=== PATIENT | female | born 2000 | race African-American/Black ===

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

== ENCOUNTER 2021-01-02 10:40 | Emergency (ER) | payer MEDICAID ==
[~2021-01-02] VITALS: Ht 157.5 cm; Wt 69.6 kg
[2021-01-02 11:13] LABS: Urine Bacteria FEW /hpf (None Seen); Urine Blood Negative /uL (Negative); Urine Hyaline Cast FEW /lpf (0 - 2); Urine Mucus FEW (None Seen); Urine Specific Gravity 1.038 (1.001-1.035); Urine WBC 40 /hpf (0 - 5)
[2021-01-02 11:39] LABS: Basophils # (auto) 0.1 10 ^3/uL (0-0.2); Basophils % (auto) 1.3 % (0.0-2.0); Eosinophils # (auto) 0 10 ^3/uL (0-0.8); Eosinophils % (auto) 0.6 % (0.0-7.0); Hemoglobin 13.5 g/dL (12.2-16.2); Lymphocytes # (auto) 1.5 10 ^3/uL (0.4-5.4); Lymphocytes % (auto) 28.5 % (10.0-50.0); Mean Corpuscular Hemoglobin 28.5 pg (28.0-32.0); Mean Corpuscular Hgb Conc. 32.9 g/dL (32.0-36.0); Mean Corpuscular Volume 86.6 fL (80.0-100.0); Monocytes # (auto) 0.2 10 ^3/uL (0-1.3); Monocytes % (auto) 2.9 % (0.0-12.0); Neutrophils # (auto) 3.5 10 ^3/uL (1.6-8.6); Neutrophils % (auto) 66.7 % (37.0-80.0); Red Blood Cells 4.74 10^6/uL (4.0-5.20); White Blood Cell 5.3 10^3/uL (4.4-10.8)
[2021-01-02 11:52] LABS: Albumin 3.6 g/dL (3.4-5.0); Calcium 8.8 mg/dL (8.5-10.1); Potassium 3.4 mmol/L (3.5-5.1)
[2021-01-02 11:55] LABS: BUN/Creatinine Ratio 19.6; Bilirubin, Total 0.3 mg/dL (0.2-1.0); Total Protein 8.7 g/dL (6.4-8.2)
[2021-01-02 12:01] LABS: Cannabinoid Screen, Urine POSITIVE (NEGATIVE)
[2021-01-02 12:08] LABS: Amphetamine Screen, Urine NEGATIVE (NEGATIVE); Barbiturate Scree,Urine NEGATIVE (NEGATIVE); Benzodiazephine Screen, Urine NEGATIVE (NEGATIVE); Cocaine Screen, Urine NEGATIVE (NEGATIVE); Opiate Scree,Urine NEGATIVE (NEGATIVE); Phencyclidine Screen, Urine NEGATIVE (NEGATIVE)
[2021-01-02 13:48] VITALS: BP 122/65
== END 2021-01-02 13:51 | disposition home or self-care (01) ==
LOC: ER 10:40
DX: N39.0 Urinary tract infection, site not specified (principal); Z79.899 Other long term (current) drug therapy
CPT/HCPCS: 36415; 80053; 80307; 81001; 84702; 85025

== ENCOUNTER 2021-01-19 15:34 | Emergency (ER) | payer MEDICAID ==
[~2021-01-19] VITALS: Ht 157.5 cm; Wt 52.2 kg
[2021-01-19 15:41] VITALS: BP 120/75
== END 2021-01-19 18:03 | disposition home or self-care (01) ==
LOC: ER 15:34
DX: S63.636A Sprain of interphalangeal joint of right little finger, initial encounter (principal); W22.8XXA Striking against or struck by other objects, initial encounter; Y93.89 Activity, other specified; Y92.89 Other specified places as the place of occurrence of the external cause; Y99.8 Other external cause status
CPT/HCPCS: 29130; 73140

== ENCOUNTER 2021-06-20 13:42 | Emergency (ER) | payer MEDICAID ==
[2021-06-20] MEDS ORDERED: PRED20TA2 PO (14:55)
[2021-06-20] MEDS ORDERED: AMOX-277 PO (14:55)
[2021-06-20] MEDS ORDERED: cefTRIAXone SOD 1,000 MG VL IM ONE (15:00)
[2021-06-20] MEDS ORDERED: methylPREDNISolone SOD SUCC 125 MG/2 ML VL IM ONE (15:00)
[2021-06-20 15:14] VITALS: BP 110/70
== END 2021-06-20 15:23 | disposition home or self-care (01) ==
LOC: ER 13:42
DX: J02.9 Acute pharyngitis, unspecified (principal); Z79.899 Other long term (current) drug therapy; Z79.2 Long term (current) use of antibiotics; Z20.822 Contact with and (suspected) exposure to COVID-19
CPT/HCPCS: 36415; 87426; 96372; 99284; J0696; J2930

== ENCOUNTER 2021-10-18 15:42 | Emergency (ER) | payer SELFPAY ==
[~2021-10-18] VITALS: Ht 157.5 cm; Wt 64.0 kg
[~2021-10-18 15:42] MED LIST changes: +AMOX-277 PO; +PRED20TA2 PO
[2021-10-18] MEDS ORDERED: ACETAMINOPHEN 500 MG TAB PO ONE (19:45)
[2021-10-18] MEDS ORDERED: ONDANSETRON ODT 4 MG TAB PO ONE (19:45)
[2021-10-18 19:53] LABS: Basophils # (auto) 0 10 ^3/uL (0-0.2); Basophils % (auto) 0.2 % (0.0-2.0); Eosinophils # (auto) 0 10 ^3/uL (0-0.8); Eosinophils % (auto) 0.1 % (0.0-7.0); Hematocrit 41.5 % (36.0-46.0); Hemoglobin 13.3 g/dL (12.2-16.2); Lymphocytes # (auto) 1.1 10 ^3/uL (0.4-5.4); Lymphocytes % (auto) 14.1 % (10.0-50.0); Mean Corpuscular Hemoglobin 27.6 pg (28.0-32.0); Mean Corpuscular Volume 86.3 fL (80.0-100.0); Monocytes # (auto) 0.4 10 ^3/uL (0-1.3); Monocytes % (auto) 5.1 % (0.0-12.0); Neutrophils # (auto) 6.6 10 ^3/uL (1.6-8.6); Neutrophils % (auto) 80.5 % (37.0-80.0); Red Blood Cells 4.81 10^6/uL (4.0-5.20); Red Cell Distribution Width 16.4 % (11.8-14.3); White Blood Cell 8.2 10^3/uL (4.4-10.8)
[2021-10-18 20:10] LABS: Albumin 3.4 g/dL (3.4-5.0); BUN/Creatinine Ratio 10.6; Calcium 8.6 mg/dL (8.5-10.1); Potassium 3.2 mmol/L (3.5-5.1)
[2021-10-18 20:13] LABS: Bilirubin, Total 0.2 mg/dL (0.2-1.0); Total Protein 8.5 g/dL (6.4-8.2)
[2021-10-18] MEDS ORDERED: POTASSIUM EFFERVESENT TAB 25 MEQ PO ONE (21:00)
[2021-10-18 22:00] VITALS: BP 119/80
== END 2021-10-18 22:18 | disposition home or self-care (01) ==
LOC: ER 15:42
DX: R55 Syncope and collapse (principal); R50.9 Fever, unspecified; E87.6 Hypokalemia; R10.2 Pelvic and perineal pain; Z20.822 Contact with and (suspected) exposure to COVID-19
CPT/HCPCS: 36415; 71045; 80053; 84484; 84702; 85025; 87426; 93005; 99285; Q0162

== ENCOUNTER 2021-10-20 08:18 | Emergency (ER) | payer MEDICAID ==
[~2021-10-20] VITALS: Ht 157.5 cm; Wt 64.4 kg
[2021-10-20 08:40] VITALS: BP 144/88
[2021-10-20] MEDS ORDERED: cefTRIAXone SOD 1,000 MG VL IM ONE (09:00)
[2021-10-20] MEDS ORDERED: AZIT500T66 PO (09:12)
[2021-10-20] MEDS ORDERED: IBUP600T27 PO (09:12)
== END 2021-10-20 09:20 | disposition home or self-care (01) ==
LOC: ER 08:18
DX: J03.90 Acute tonsillitis, unspecified (principal); H66.91 Otitis media, unspecified, right ear; Z79.1 Long term (current) use of non-steroidal anti-inflammatories (NSAID); Z79.2 Long term (current) use of antibiotics; Z79.899 Other long term (current) drug therapy
CPT/HCPCS: 96372; 99283; J0696

== ENCOUNTER 2022-03-28 13:49 | Emergency (ER) | payer MEDICAID ==
[~2022-03-28] VITALS: Ht 157.5 cm; Wt 66.9 kg
[~2022-03-28 13:49] MED LIST changes: +AZIT500T66 PO; +IBUP600T27 PO
[2022-03-28] MEDS ORDERED: ALBU108A5 IN (16:58)
[2022-03-28] MEDS ORDERED: AMOX-277 PO (16:58)
[2022-03-28] MEDS ORDERED: PROM1SOL4 PO (16:58)
[2022-03-28 17:57] VITALS: BP 156/91
== END 2022-03-28 17:59 | disposition home or self-care (01) ==
LOC: ER 13:58
DX: H66.92 Otitis media, unspecified, left ear (principal)

== ENCOUNTER 2022-05-08 09:13 | Emergency (ER) | payer MEDICAID ==
[~2022-05-08] VITALS: Ht 157.5 cm; Wt 67.3 kg
[~2022-05-08 09:13] MED LIST changes: +ALBU108A5 IN; +PROM1SOL4 PO
[2022-05-08 11:22] VITALS: BP 121/90
[2022-05-08] MEDS ORDERED: ACET1CAP14 PO (12:22)
[2022-05-08] MEDS ORDERED: AMOX-277 PO (12:22)
[2022-05-08] MEDS ORDERED: IBUPROFEN 600 MG TAB PO ONE (12:30)
== END 2022-05-08 12:39 | disposition home or self-care (01) ==
LOC: ER 09:13
DX: H66.92 Otitis media, unspecified, left ear (principal); Z79.1 Long term (current) use of non-steroidal anti-inflammatories (NSAID); Z79.2 Long term (current) use of antibiotics; Z79.899 Other long term (current) drug therapy

== ENCOUNTER 2022-09-08 15:30 | Emergency (ER) | payer MEDICAID ==
[~2022-09-08] VITALS: Ht 154.9 cm; Wt 62.2 kg
[~2022-09-08 15:30] MED LIST changes: +ACET1CAP14 PO
[2022-09-08 15:58] VITALS: BP 122/86
[2022-09-08 16:25] LABS: Urine Bacteria NONE SEEN /hpf (None Seen); Urine Blood Negative /uL (Negative); Urine Mucus FEW (None Seen); Urine Specific Gravity 1.029 (1.001-1.035); Urine WBC 3 /hpf (0 - 5)
[2022-09-08] MEDS ORDERED: BACDST PO (16:56)
[2022-09-08] MEDS ORDERED: AZIT250T8 PO (16:56)
== END 2022-09-08 17:00 | disposition home or self-care (01) ==
LOC: ER 15:30
DX: N39.0 Urinary tract infection, site not specified (principal); J03.90 Acute tonsillitis, unspecified
CPT/HCPCS: 81001; 81025

== ENCOUNTER 2023-07-23 16:00 | Observation (INO) | payer MEDICAID ==
[~2023-07-23] VITALS: Ht 154.9 cm; Wt 59.0 kg
[~2023-07-23 16:00] MED LIST changes: -AMOX-277 PO; +AMOX875T4 PO; +AZIT-185 PO; +BACDST PO; +IBUP-1454 PO; -IBUP600T27 PO
[2023-07-23] MEDS: ACETAMINOPHEN 500 MG TAB PO ONE (17:56)
[2023-07-23 18:29] LABS: Urine Bacteria NONE SEEN /hpf (None Seen); Urine Blood Negative /uL (Negative); Urine Clarity Clear (Clear); Urine Color Colorless (Yellow); Urine Protein, UAD Negative (Negative); Urine Specific Gravity 1.008 (1.001-1.035); Urine Urobilinogen Normal (Negative); Urine WBC 1 /hpf (0 - 5)
[2023-07-23 18:34] LABS: Basophils # (auto) 0 10 ^3/uL (0-0.2); Basophils % (auto) 0.4 % (0.0-2.0); Eosinophils # (auto) 0.1 10 ^3/uL (0-0.8); Hematocrit 31.1 % (36.0-46.0); Hemoglobin 9.7 g/dL (12.2-16.2); Mean Corpuscular Hgb Conc. 31.2 g/dL (32.0-36.0); Monocytes # (auto) 0.3 10 ^3/uL (0-1.3); Nucleated Red Blood Cells % 0.1 %
[2023-07-23 18:36] LABS: Eosinophils % (auto) 1.9 % (0.0-7.0); Lymphocytes # (auto) 0.7 10 ^3/uL (0.4-5.4); Lymphocytes % (auto) 13.2 % (10.0-50.0); Mean Corpuscular Hemoglobin 26.5 pg (28.0-32.0); Mean Corpuscular Volume 85.2 fL (80.0-100.0); Monocytes % (auto) 5.1 % (0.0-12.0); Neutrophils # (auto) 4.1 10 ^3/uL (1.6-8.6); Neutrophils % (auto) 79.4 % (37.0-80.0); Red Blood Cells 3.65 10^6/uL (4.0-5.20); Red Cell Distribution Width 17.7 % (11.8-14.3); White Blood Cell 5.1 10^3/uL (4.4-10.8)
[2023-07-23 18:44] LABS: Protein, Urine < 6.0 mg/dL (0.0-11.9)
[2023-07-23 18:46] LABS: Amphetamine Screen, Urine Neg (NEGATIVE); Barbiturate Scree,Urine Neg (NEGATIVE); Benzodiazephine Screen, Urine Neg (NEGATIVE); Cannabinoid Screen, Urine Neg (NEGATIVE); Cocaine Screen, Urine Neg (NEGATIVE); Opiate Scree,Urine Neg (NEGATIVE); Phencyclidine Screen, Urine Neg (NEGATIVE)
[2023-07-23 18:47] LABS: Creatinine, Urine 31.14 mg/dL (30.0-125.0); Urine Protein/Creatinine Ratio 0.19
[2023-07-23 18:58] LABS: Alanine Aminotransferase 15 U/L (7-40); Albumin 3.2 g/dL (3.2-4.8); Alkaline Phosphatase 95 U/L (46-116); Anion Gap 3 (5-15); Aspartate Aminotransferase 27 U/L (13-40); Blood Urea Nitrogen 8 mg/dL (9-23); Carbon Dioxide 25 mmol/L (20-30); Chloride 108 mmol/L (98-107); Glucose 82 mg/dL (74-106); INR 0.93 (0.9-1.15); Partial Thromboplastin Time 25.4 SEC (24.5-34.5); Potassium 3.5 mmol/L (3.5-5.1); Prothrombin Time 9.8 sec (9.3-11.8); Sodium 136 mmol/L (136-145)
[2023-07-23 18:59] LABS: Bilirubin, Total 0.2 mg/dL (0.2-1.0); Total Protein 6.5 g/dL (5.7-8.2)
[2023-07-23 19:14] LABS: Vaginal Trichomonas Not Present
[2023-07-23 19:15] LABS: Vaginal Bacteria Many; Vaginal Clue Cells None Seen; Vaginal Epithelial Cells Moderate
[2023-07-23] MEDS ORDERED: PREN-96 PO (19:46)
[2023-07-23] MEDS ORDERED: FER325T PO (19:46)
[2023-07-23] MEDS ORDERED: ALBUAER3 IN (19:52)
[2023-07-23 20:16] LABS: % Iron Saturation 9.7 % (15-50)
[2023-07-25 08:06] LABS: RPR Non Reactive (Non Reactive)
[2023-07-25 13:07] LABS: QuantiFERON-TB Gold Plus Negative (Negative)
[2023-07-25 22:06] LABS: Chlamydia Trachomatis, NAA Positive (Negative); Neisseria gonorrhoeae, NAA Negative (Negative)
[2023-07-26 03:06] LABS: Rubella Antibodies, IgG 1.76 index (Immune >0.99)
[2023-07-26] MEDS ORDERED: NIF10C PO (20:48)
[2023-07-29 19:06] LABS: Treponema pallidum Ab (FTA-Ab) Non Reactive (Non Reactive)
== END 2023-07-23 19:53 | disposition home or self-care (01) ==
LOC: LDRP 16:00
PROVIDERS: ADMIT Obstetrics & Gynecology; ATTEND Obstetrics & Gynecology
DX: O36.8130 Decreased fetal movements, third trimester, not applicable or unspecified (principal); O99.013 Anemia complicating pregnancy, third trimester; O98.813 Other maternal infectious and parasitic diseases complicating pregnancy, third trimester; O09.33 Supervision of pregnancy with insufficient antenatal care, third trimester; O47.03 False labor before 37 completed weeks of gestation, third trimester; D50.9 Iron deficiency anemia, unspecified; B37.31 Acute candidiasis of vulva and vagina; Z3A.34 34 weeks gestation of pregnancy; Z91.419 Personal history of unspecified adult abuse; Z79.899 Other long term (current) drug therapy; Z91.018 Allergy to other foods
CPT/HCPCS: 36415; 59025; 76805; 76818; 80053; 80307; 81001; 81002; 82570; 82728; 83036; 83540; 83550; 84156; 84550; 85025; 85610; 85730; 86592; 86701; 86703; 86762; 86803; 86850; 86870; 86900; 86901; 87086; 87210; 87340; 87491; 87591; 94760; G0378

== ENCOUNTER 2024-04-13 21:05 | Emergency (ER) | payer MEDICAID ==
[~2024-04-13] VITALS: Ht 157.5 cm; Wt 67.1 kg
[~2024-04-13 21:05] MED LIST changes: -ACET1CAP14 PO; -ALBU108A5 IN; +ALBUAER3 IN; -AMOX875T4 PO; -AZIT-185 PO; -AZIT500T66 PO; -BACDST PO; -BENZ0.5T19 PO; -DIPH-515 GT; +FER325T PO; -IBUP-1454 PO; -PRED20TA2 PO; +PREN-96 PO; -PROM1SOL4 PO; -ZIPR20CA15 PO
[2024-04-13 21:29] VITALS: BP 125/80; PULSE 127; RESP 17; O2SAT 99
--- NOTE | 2024-04-13 21:40 | ED.PDOC ---
History of Present Illness HPI Comments 23 y/o F presents with c/o headache, fever, and cough, today. Patient endorses on persisting symptoms since gradual onset, last night. She reports cough being non-productive in addition to her mother at home having similar symptoms, currently. She comments no additional relevant or pertinent Hx, such as recent travel or substance use/exposure along with any significant past medical Hx. She denies having any dizziness, vision or speech changes, throat pain, fever, chills, or other associated symptoms or modifiers at this time. Chief Complaint: Flu like Time Seen by MD: 21:20 Primary Care Provider: NONE Reviewed Notes: Nurses Notes, Medications, Allergies Allergies: Uncoded Allergies: olives (Allergy, Severe, 07/23/23) Home Meds Active Scripts Albuterol Sulfate (VENTOLIN MDI) 90 Mcg Ih, 90 MCG IN Q4HPRN PRN for 15 Days, #1 INH 5 Refills take 2 puffs every 4 hours as needed Prov:NOE MARSHALL CNM 07/23/23 Ferrous Sulfate (FERROUS SULFATE) 325 Mg Tb, 325 MG PO EOD for 90 Days, #90 TAB 3 Refills Prov:JOSÉ MIGUEL MARSHALLHI CNM 07/23/23 Vit W/ Ferrous Fumara ( One Daily) Daily Tab, 1 TAB PO DAILY, #90 TAB 3 Refills Prov:NOE MARSHALL CNM 07/23/23 Information Source: Patient Mode of Arrival: Ambulatory Severity: Moderate Timing: Days Duration: Since onset Prehospital treatment: None Past Medical History PAST MEDICAL HISTORY: Denies Surgical History: Denies all surgeries TAX ADVISOR History: No Pertinent TAX ADVISOR History Family History Family History: Reviewed,noncontributory to illness, No family hx of Heart andrew, Family hx of stroke Social History Smoker: Non-Smoker Alcohol: Denies ETOH Use Drugs: Denies Drug Use Lives In: Home Constitutional: reports: fever Respiratory: reports: cough (nonproductive ) Neurological: reports: headache All Other Systems: Reviewed and Negative (negative unless otherwise listed above or in HPI) Physical Exam General Appearance: No Apparent Distress, Normal HEENT: Normal ENT Inspection, Pharynx Normal, TMs Normal Neck: Full Range of Motion, Non-Tender, Normal, Normal Inspection Respiratory: Chest Non-Tender, Lungs Clear, No Accessory Muscle Use, No Respiratory Distress, Normal Breath Sounds Cardiovascular: No Edema, No JVD, No Murmur, No Gallop, Normal Peripheral Puls es, Regular Rate/Rhythm Breast Exam: Deferred Gastrointestinal: No Organomegaly, Non Tender, No Pulsatile Mass, Normal Bowel Sounds, Soft Genitalia: Deferred Pelvic: Deferred Rectal: Deferred Extremities: No calf tenderness, Normal capillary refill, Normal inspection, Normal range of motion, Non-tender, No pedal edema Musculoskeletal : Apperance: Normal Neurologic: Alert, 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 Was a procedure done?: No Differential Dx Considerations may include: viral syndrome, URI, UTI X-Ray, Labs, Meds, VS Vital Signs Date Time Temp Pulse Resp B/P (MAP) Pulse Ox O2 Delivery O2 Flow Rate FiO2 04/13/24 21:29 100.3 127 17 125/80 (95) 99 Lab Test 04/13/24 21:25 Range/Units Influenza Type A Antigen Positive Negative Influenza Type B Antigen Negative Negative SARS-CoV-2 Antigen (Rapid) Negative NEGATIVE X-Ray, Labs, Meds, VS Comment Imaging: X-rays and CT scans were reviewed and interpreted by this provider, imaging shows no fractures and no pathological disease. Pending radiology review. Laboratory: Labs reviewed and interpreted by this provider. Positive influenza Patient has prior medical visits reviewed. Med reconciliation performed Vital signs reviewed Time of 1ST Reevaluation: 21:50 Reevaluation 1ST: Unchanged Patient Education/Counseling: Diagnosis, Treatment, Need For Follow Up (Follow up with the PCP in the next 2-4 days.) Family Education/Counseling: No Family Present Departure 1 Departure Time of Disposition: 22:30 Impression: Primary Impression: Influenza A Disposition: HOME / SELF CARE / HOMELESS Condition: Fair e-Prescriptions Ibuprofen (Ibuprofen) 600 Mg Tab 1 TAB PO TID, #30 TAB Prov: LEONEL WELLINGTON 04/13/24 Promethazine-Dm (Promethazine Dm 6.25-15 mg/5Ml) 1 Susie Susie 5 ML PO TID, #240 ML Prov: LEONEL WELLINGTON 04/13/24 Oseltamivir Phosphate (Tamiflu) 75 Mg Cap 75 MG PO BID for 5 Days, #10 CAP Prov: LEONEL WELLINGTON 04/13/24 Discharged With: Self Critical Care Note Critical Care Time?: No Stability Stability form required: No Heart Score Heart Score: Heart Score Response (Comments) Value History N/A 0 EKG N/A 0 Age N/A 0 Risk Factors N/A 0 Troponin N/A 0 Total 0 I personally scribed for LEONEL WELLINGTON ([email or web address]) on 04/13/24 at 21:40. Electronically submitted by Wang Carpenter [email or web address]). LEONEL WELLINGTON Apr 13, 2024 21:40
[2024-04-13 22:11] LABS: COVID19 ANTIGEN SOFIA FIA NEGATIVE (NEGATIVE); Rapid Influenza B Negative (Negative)
[2024-04-13 22:16] LABS: Rapid Influenza A Positive (Negative)
[2024-04-13] MEDS ORDERED: IBUP-1454 PO (22:54)
[2024-04-13] MEDS ORDERED: PROM1SOL4 PO (22:54)
[2024-04-13] MEDS ORDERED: TAMIFLU PO (22:54)
== END 2024-04-13 23:07 | disposition home or self-care (01) ==
LOC: ER 21:05
DX: J10.1 Influenza due to other identified influenza virus with other respiratory manifestations (principal); Z20.822 Contact with and (suspected) exposure to COVID-19; Z79.899 Other long term (current) drug therapy
CPT/HCPCS: 36415; 87426; 87804